=== PATIENT | female | born 1960 | race Caucasian/White ===

== ENCOUNTER → 2017-06-09 | Outpatient (CLI) | payer MEDICARE, OTHER ==
--- NOTE | 2017-06-09 13:28 | XR ---
EXAMINATION TYPE: XR chest 2V DATE OF EXAM: 06/09/2017 HISTORY: [id number] lt rib pain,smoker. REFERENCE: Previous study dated 11/09/2015. FINDINGS: There has been a previous ACDF of the lower cervical spine. The lungs are overinflated. There is scarring in the right upper lobe. Lungs otherwise clear. Pleural spaces are clear. The heart is not enlarged. IMPRESSION: 1. COPD. 2. RIGHT UPPER LOBE PULMONARY SCARRING.
--- NOTE | 2017-06-09 13:48 | XR ---
Left RIBS HISTORY: Left rib pain 4 views of the left RIBS Bone mineralization is maintained. The ninth rib shows a fracture laterally without significant displ acement. No evident pneumothorax or pleural effusion. IMPRESSION: Ninth left rib fracture.
== END | disposition home or self-care (01) ==
LOC: RADXRYALE 11:24
PROVIDERS: ATTEND Physician Assistant Medical
DX: S22.32XA Fracture of one rib, left side, initial encounter for closed fracture (principal); J44.9 Chronic obstructive pulmonary disease, unspecified; J98.4 Other disorders of lung; F17.200 Nicotine dependence, unspecified, uncomplicated
CPT/HCPCS: 71020

== ENCOUNTER → 2017-06-22 | Outpatient (CLI) | payer MEDICARE, OTHER ==
--- NOTE | 2017-06-22 15:39 | XR ---
EXAMINATION TYPE: XR ribs LT w pa chest x-ray DATE OF EXAM: 06/22/2017 CLINICAL HISTORY: Chest and left-sided rib pain. TECHNIQUE: Single frontal view of the chest is obtained. A frontal and oblique images of the left-narinder ed ribs are acquired. COMPARISON: Chest and left-sided rib x-rays June 09, 2017. FINDINGS: There is chronic emphysematous change with right apical scarring and nodularity redemonstra guille. There is no focal air space opacity, pleural effusion, or pneumothorax seen. The cardiac silho uette size is within normal limits. Fusion plate lower cervical spine is partially imaged. Dedicated images of the left-sided ribs show no new acute displaced left-sided rib fracture. There is new callus formation in the anterolateral left ninth rib Overlying soft tissue is unremarkable. IMPRESSION: 1. Chronic emphysematous change with right upper lung scarring and nodularity, no acute pulmonary pro cess. No significant change from prior. 2. Some callus or healing in the now subacute anterolateral left ninth rib. No new acute fracture or dislocation is seen.
== END | disposition home or self-care (01) ==
LOC: RADXRYALE 11:00
PROVIDERS: ATTEND Physician Assistant Medical
DX: J43.9 Emphysema, unspecified (principal); J98.4 Other disorders of lung; R91.1 Solitary pulmonary nodule

== ENCOUNTER → 2017-07-29 | Outpatient (CLI) | payer MEDICARE, OTHER ==
--- NOTE | 2017-07-29 10:27 | BD ---
EXAMINATION TYPE: MG DEXA axial skeleton. DATE OF EXAM: 07/29/2017 COMPARISON: DEXA bone scan June 04, 2011. CLINICAL HISTORY: Z13.820 OSTEOPOROSIS Height: 65 Weight: 129 FRAX RISK QUESTIONS: Alcohol (3 or more units per day): NO Family History (Parent hip fracture): YES, NO HIP FX, BUT MANY SPINAL FXS Glucocorticoids (More than 3mos): NO (Ex: prednisone, prednisolone, methylprednisolone, dexamethasone, and hydrocortisone). History of Fracture in Adulthood: YES Secondary Osteoporosis: NO 1. Type 1 Diabetes: NO 2. Hyperthyroidism: NO 3. Menopause before 45: YES 4. Malnutrition: NO 5. Chronic liver disease: NO Rheumatoid Arthritis: NO Current Tobacco Use: YES, 1/2 PAC DAILY RISK FACTORS HISTORY OF: RECENT RIB FX.....AT 57 YRS OLD History of Wrist Fracture: LT WRIST FX CHILD Surgery to Spine CERVICAL AND LUMBAR FUSION Family History of Osteoporosis: YES, HER MOTHER, CONTINUOUS SPINE FRACTURES WITH MINIMAL MOVEMENT Active: YES Diet low in dairy products/other sources of calcium: NO Postmenopausal woman: YES AT AGE 41 Lost more than 2 inches in height since high school: YES Hyperparathyroidism: NO Adrenal Insufficiency: NO MEDICATIONS: Additional Medications: STATINS FOR CHOLESTEROL, CALCIUM AND VIT D Additional History: BACK ISSUES, OSTEOARTHRITIS EXAM MEASUREMENTS: Bone mineral densitometry was performed using the [employer]. HX OF CERVICAL AND LUMBAR SPINAL FUSIONS....LUMBAR SPINE NOT SCANNED Bone mineral density about the R hip (g/cm2): 0.809 Bone mineral density about the L hip (g/cm2): 0.852 T Score values are as follows: -----R Neck: -1.7 -----L Neck: -1.6 -----R Total: -1.6 -----L Total: -1.2 Bone mineral density has: Decreased -1.0% since study of: 06.04.2011 FRAX%'S: THERE IS A 13.3% CHANCE OF A MAJOR OSTEOPOROTIC FX AND A 2.4% FOR A HIP FX.....PROBABILIT Y OF FX IN 10 YRS TIME IMPRESSION: Osteopenia (T Score between -2.5 and -1 as noted by T score values in both hips. There is slightly increased risk of fracture and the patient may be considered for treatment. Re-Screen 2-5 years NOTE: T-SCORE=SD OF THE YOUNG ADULT MEAN.
--- NOTE | 2017-07-30 11:19 | MM ---
Reason for exam: screening (asymptomatic). Last mammogram was performed 2 years and 8 months ago. History: Patient is postmenopausal. Family history of breast cancer in brother at age 57 and breast cancer in maternal grandmother. Benign excisional biopsy of the left breast. Physical Findings: A clinical breast exam by your physician is recommended on an annual basis and results should be correlated with mammographic findings. MG 3D Screening Mammo W/Cad Bilateral CC and MLO view(s) were taken. Prior study comparison: December 13, 2014, bilateral MG screening mammo w CAD. June 06, 2012, bilateral digital screening mammo w/CAD. The breast tissue is heterogeneously dense. This may lower the sensitivity of mammography. No significant changes when compared with prior studies. ASSESSMENT: Benign, BI-RAD 2 RECOMMENDATION: Routine screening mammogram of both breasts in 1 year.
== END | disposition home or self-care (01) ==
LOC: RADMAMWWP 09:18
PROVIDERS: ATTEND Physician Assistant Medical
DX: Z12.31 Encounter for screening mammogram for malignant neoplasm of breast (principal); M85.88 Other specified disorders of bone density and structure, other site; Z80.3 Family history of malignant neoplasm of breast
CPT/HCPCS: 77080; 77063; G0202

== ENCOUNTER 2018-09-26 10:41 | Emergency (ER) | payer MEDICARE, OTHER ==
[2018-09-26 10:48] VITALS: RESP 18; TEMP 97.5
--- NOTE | 2018-09-26 11:29 | ED ---
General Adult HPI - General Chief complaint: Neck Pain/Injury Stated complaint: neck & shoulder pain Time Seen by Provider: 09/26/18 10:50 Source: patient, RN notes reviewed Mode of arrival: ambulatory Limitations: no limitations - History of Present Illness Initial comments: Patient 58-year-old female seen a few past medical history for chronic neck pain , presented to the emergency room today with a chief complaint of increased neck pain over the last several months. She does admit that back in March she was cutting the grass and she was on a lawnmower. She states she was going around a tree and a tree branch caught her hair pulling it backwards. She does admit that she's had neck pain that has been increasing since this accident. She states she was unable to see her family doctor as it was disputed bill. Patient admits that the pain is worse with movements. She states specifically 2 weeks ago she was changing a light bulb when she went to look up and had her arms above her head and she felt like she went numb from the waist down. She does admit that the pain is worse with movements. She does have some numbness tingling sensation going into the left arm. She does admit that is not experiencing any other paresthesias at this time. Patient denies any recent fever, chills, shortness of breath, chest pain, abdominal pain, nausea or vomiting, headaches or visual changes, or any other complaints. - Related Data Home Medications Medication Instructions Recorded Confirmed Multivitamins, Thera [Theragran] 1 each PO DAILY 02/04/15 09/26/18 [place]-3 Fatty Acids/Fish Oil [Fish 1 each PO DAILY 02/04/15 09/26/18 Oil 1,000 mg Softgel] Calcium Carbonate/Vitamin D3 1 tab PO DAILY 09/26/18 09/26/18 [Calcium 500-Vit D3 200 Tablet] Cholecalciferol (Vitamin D3) 2,000 unit PO DAILY 09/26/18 09/26/18 [Vitamin D3] Grapeseed (Unknown) 1 tab PO DAILY 09/26/18 Peg 400/Hypromellose/Glycerin 1 drop BOTH EYES DAILY 09/26/18 09/26/18 [Visine Dry Eye Relief Drop] Ubidecarenone [Co Q-10] 100 mg PO DAILY 09/26/18 09/26/18 Previous Rx's Medication Instructions Recorded Cyclobenzaprine [Flexeril] 10 mg PO TID #20 tab 09/26/18 Allergies Allergy/AdvReac Type Severity Reaction Status Date / Time ciprofloxacin [From Cipro] Allergy Rash/Hives Verified 09/26/18 11:17 ciprofloxacin HCl Allergy Rash/Hives Verified 09/26/18 11:17 [From Cipro] nitrofurantoin AdvReac MUSCLE Verified 09/26/18 11:17 WEAKNESS risedronate sodium AdvReac JAW PAIN Verified 09/26/18 11:17 [From Actonel] rosuvastatin calcium AdvReac LEG CRAMPS Verified 09/26/18 11:17 [From Crestor] Review of Systems ROS Statement: Those systems with pertinent positive or pertinent negative responses have been documented in the HPI. ROS Other: All systems not noted in ROS Statement are negative. Past Medical History Past Medical History: Hyperlipidemia Additional Past Medical History / Comment(s): MIGRAINE History of Any Multi-Drug Resistant Organisms: None Reported Past Surgical History: Back Surgery, Orthopedic Surgery Additional Past Surgical History / Comment(s): LUMBAR FUSION, BOTH FEET, KNEE ARTHROSCOPY Past Psychological History: ADD/ADHD Smoking Status: Current every day smoker Past Alcohol Use History: None Reported Past Drug Use History: None Reported General Exam - General Exam Comments Initial Comments: General: The patient is awake and alert, in no distress, and does not appear acutely ill. Eye: Pupils are equal, round and reactive to light. Extra-ocular movements are intact. No nystagmus. There is normal conjunctiva bilaterally. No signs of icterus. Ears, nose, mouth and throat: There are moist mucous membranes and no oral lesions. Neck: The neck is supple, there is no tenderness or JVD. Cardiovascular: There is a regular rate and rhythm. No murmur, rub or gallop is appreciated. Respiratory: Lungs are clear to auscultation, respirations are non-labored, breath sounds are equal. No wheezes, stridor, rales, or rhonchi. Musculoskeletal: Normal ROM. Normal appearance of cervical, thoracic or lumbar spinal no step-off or deformity. She does have tenderness at C5 to C7. Sensation intact. Strength 5/5. Pulses equal bilaterally 2+. Neurological: A&O x 3. CN II-XII intact, There are no obvious motor or sensory deficits. Coordination appears grossly intact. Speech is normal. Skin: Skin is warm and dry and no rashes or lesions are noted. Psychiatric: Cooperative, appropriate mood & affect, normal judgment. Limitations: no limitations Course Vital Signs 09/26/18 09/26/18 10:46 12:02 Temperature 97.5 F L Pulse Rate 87 76 Respiratory 18 18 Rate Blood Pressure 154/109 158/100 O2 Sat by Pulse 99 98 Oximetry Medical Decision Making - Medical Decision Making CT of the cervical spine reviewed and shows 1. Grade 1 spondylolisthesis of C4 on C5. 2. Foraminal stenosis of C4-7. 3. No acute osseous abnormality. As read by radiologist.Case discussed in detail with attending physician Dr. Mcintyre. Patient will be discharged home advised to follow-up urologist she is advised to return if any symptoms increase or worsen or for any concerns. Disposition Clinical Impression: Cervical radiculopathy Disposition: HOME SELF-CARE Condition: Good Instructions: Cervical Radiculopathy (ED) Additional Instructions: Please use medication as discussed. Please follow-up with neurologist/family doctor in the next 2 days of symptoms have not improved. Please return to emergency room if the symptoms increase or worsen or for any other concerns. Prescriptions: Cyclobenzaprine [Flexeril] 10 mg PO TID #20 tab Is patient prescribed a controlled substance at d/c from ED?: No Referrals: None,Stated [Primary Care Provider] - 1-2 days Oracio Badillo MD [STAFF PHYSICIAN] - 1-2 days Time of Disposition: 12:19
--- NOTE | 2018-09-26 11:50 | CT ---
EXAMINATION TYPE: CT cervical spine wo con DATE OF EXAM: 09/26/2018 COMPARISON: CT chest 02/11/2011 HISTORY: Neck pain CT DLP: 208.5 mGycm CONTRAST: None CT of the cervical spine is performed in the axial plane at 2 mm thick sections. Reconstructed image s in the coronal, and sagittal plane are reviewed on the computer. No acute fractures are evident. There is a grade 1 spondylolisthesis of C4 anteriorly on C5. Anterior cervical fusion is present C5-C 7. There is loss of disc height through the C5-C7 fusion. There is narrowing of the C7-T1 disc space. Mi nimal narrowing of the C4-5 disc space may be present. Vertebral body heights are preserved. No spinal canal stenosis is evident Uncovertebral joint hypertrophy is contributing to severe left foraminal stenosis C4-5. Moderate to s evere right foraminal stenosis is present C5-6 and moderate foraminal narrowing is present bilaterall y C6-7. There is a 2.4 x 1.0 cm thickening with some stranding adjacent at the right apex. This is essentiall y stable from the 2010 CT examination. IMPRESSIONS: 1. Grade 1 spondylolisthesis of C4 on C5. 2. Foraminal stenosis discussed above. 3. No acute osseous abnormality.
[2018-09-26 12:03] VITALS: BP 158/100; PULSE 76
== END 2018-09-26 12:31 | disposition home or self-care (01) ==
LOC: EC 10:41
DX: M54.12 Radiculopathy, cervical region (principal); M43.12 Spondylolisthesis, cervical region; M99.71 Connective tissue and disc stenosis of intervertebral foramina of cervical region; F17.200 Nicotine dependence, unspecified, uncomplicated; Z79.899 Other long term (current) drug therapy; Z88.1 Allergy status to other antibiotic agents; Z88.8 Allergy status to other drugs, medicaments and biological substances
CPT/HCPCS: 72125; 99283

== ENCOUNTER 2018-11-07 15:04 | Inpatient (IN) | payer MEDICARE, OTHER ==
[2018-11-07] MEDS ORDERED: methylPREDNISolone SOD SUCCI 125 MG/2 ML VIAL IV STA (15:16)
[2018-11-07] MEDS ORDERED: IPRATROPIUM-ALBUTEROL 3 ML NEB INHALATION STA ×2 (15:16→16:35)
[2018-11-07] MEDS ORDERED: SODIUM CHLORIDE 0.9% 1,000 ML IV STA (15:16)
--- NOTE | 2018-11-07 15:19 | ED ---
General Adult HPI - General Chief complaint: Upper Respiratory Infection Stated complaint: cough/fever/congestion Time Seen by Provider: 11/07/18 15:11 Source: patient, RN notes reviewed Mode of arrival: wheelchair Limitations: no limitations - History of Present Illness Initial comments: Patient's a 58-year-old female presenting to the emergency room with chief complaint of cough congestion over the last 4 days. Patient does admit that she was running a fever 102 at home the other day. Patient states that she's had cough with sputum production it's been green in color. Patient does admit to a history of COPD did try one albuterol treatment that she had leftover states she had little relief the symptoms. Patient does admit to feeling more short of breath with exertion. Patient denies any recent fever, chills, chest pain, back pain, abdominal pain, nausea or vomiting, numbness or tingling, headaches or visual changes, or any other complaints. - Related Data Home Medications Medication Instructions Recorded Confirmed Multivitamins, Thera [Theragran] 1 each PO DAILY 02/04/15 11/07/18 [place]-3 Fatty Acids/Fish Oil [Fish 1 each PO DAILY 02/04/15 11/07/18 Oil 1,000 mg Softgel] Cholecalciferol (Vitamin D3) 2,000 unit PO DAILY 09/26/18 11/07/18 [Vitamin D3] Allergies Allergy/AdvReac Type Severity Reaction Status Date / Time ciprofloxacin [From Cipro] Allergy Rash/Hives Verified 11/07/18 18:50 ciprofloxacin HCl Allergy Rash/Hives Verified 11/07/18 18:50 [From Cipro] nitrofurantoin AdvReac MUSCLE Verified 11/07/18 18:50 WEAKNESS risedronate sodium AdvReac JAW PAIN Verified 11/07/18 18:50 [From Actonel] rosuvastatin calcium AdvReac LEG CRAMPS Verified 11/07/18 18:50 [From Crestor] Review of Systems ROS Statement: Those systems with pertinent positive or pertinent negative responses have been documented in the HPI. ROS Other: All systems not noted in ROS Statement are negative. Past Medical History Past Medical History: Hyperlipidemia Additional Past Medical History / Comment(s): MIGRAINE History of Any Multi-Drug Resistant Organisms: None Reported Past Surgical History: Back Surgery, Orthopedic Surgery Additional Past Surgical History / Comment(s): LUMBAR FUSION, BOTH FEET, KNEE ARTHROSCOPY Past Psychological History: ADD/ADHD Smoking Status: Current every day smoker Past Alcohol Use History: None Reported Past Drug Use History: None Reported General Exam - General Exam Comments Initial Comments: General: The patient is awake and alert, in no distress, and does not appear acutely ill. Eye: There is normal conjunctiva bilaterally. No signs of icterus. Ears, nose, mouth and throat: There are moist mucous membranes and no oral lesions. Neck: The neck is supple. Cardiovascular: There is a regular rate and rhythm. No murmur, rub or gallop is appreciated. Respiratory: Lateral expiratory wheeze with scattered rhonchi. are non-labored , breath sounds are equal. Nostridor, rales. Musculoskeletal: Normal ROM, no tenderness. Strength 5/5. Sensation intact. Pulses equal bilaterally 2+. Neurological: A&O x 3. CN II-XII intact, There are no obvious motor or sensory deficits. Coordination appears grossly intact. Speech is normal. Skin: Skin is warm and dry and no rashes or lesions are noted. Psychiatric: Cooperative, appropriate mood & affect, normal judgment. Limitations: no limitations Course Vital Signs 11/07/18 11/07/18 11/07/18 15:07 15:32 15:36 Temperature 97.8 F Pulse Rate 110 H 98 Respiratory 24 20 18 Rate Blood Pressure 135/88 O2 Sat by Pulse 92 L Oximetry 11/07/18 11/07/18 11/07/18 15:46 16:46 16:54 Temperature Pulse Rate 96 109 H 107 H Respiratory 20 18 Rate Blood Pressure O2 Sat by Pulse Oximetry 11/07/18 11/07/18 11/07/18 17:37 18:19 18:28 Temperature Pulse Rate 101 H Respiratory 18 18 Rate Blood Pressure 136/92 128/93 O2 Sat by Pulse 93 L 83 L 94 L Oximetry 11/07/18 19:28 Temperature 97.4 F L Pulse Rate 88 Respiratory 18 Rate Blood Pressure 140/86 O2 Sat by Pulse 96 Oximetry EKG Findings - EKG Comments: EKG Findings:: EKG performed at 1523: Shows normal sinus rhythm at 93 bpm. SC interval 156. QRS 88. QT/QTC 362/450. No acute ST changes. Medical Decision Making - Medical Decision Making Patient reexamined at this time shows no signs of distress resting comfort. Does admit some improvement after breathing treatments. Patient's pulse ox still drops down to the 80s with ambulation. Patient started on antibiotics of Rocephin and azithromycin here in the emergency room. Patient will be admitted continued on steroids, breathing treatments. We'll consult to telephone instrument supervisor Dr. Greene 1924: Attending physician discuss case with admitting physician Dr. Talbert. - Lab Data Result diagrams: 11/07/18 15:40 11/07/18 15:40 Lab Results 11/07/18 11/07/18 11/07/18 Range/Units 15:40 15:40 15:40 WBC 8.1 (3.8-10.6) k/uL RBC 4.87 (3.80-5.40) m/uL Hgb 15.1 (11.4-16.0) gm/dL Hct 47.5 H (34.0-46.0) % MCV 97.6 (80.0-100.0) fL MCH 31.1 (25.0-35.0) pg MCHC 31.8 (31.0-37.0) g/dL RDW 13.0 (11.5-15.5) % Plt Count 132 L (150-450) k/uL Neutrophils % 79 % Lymphocytes % 12 % Monocytes % 5 % Eosinophils % 2 % Basophils % 1 % Neutrophils # 6.4 (1.3-7.7) k/uL Lymphocytes # 1.0 (1.0-4.8) k/uL Monocytes # 0.4 (0-1.0) k/uL Eosinophils # 0.1 (0-0.7) k/uL Basophils # 0.0 (0-0.2) k/uL Sodium 138 (137-145) mmol/L Potassium 4.4 (3.5-5.1) mmol/L Chloride 107 (98-107) mmol/L Carbon Dioxide 21 L (22-30) mmol/L Anion Gap 10 mmol/L BUN 15 (7-17) mg/dL Creatinine 0.56 (0.52-1.04) mg/dL Est GFR (CKD-EPI)AfAm >90 (>60 ml/min/1.73 sqM) Est GFR (CKD-EPI)NonAf >90 (>60 ml/min/1.73 sqM) Glucose 89 (74-99) mg/dL Plasma Lactic Acid Theo (0.7-2.0) mmol/L Calcium 9.4 (8.4-10.2) mg/dL Total Bilirubin 0.5 (0.2-1.3) mg/dL AST 34 (14-36) U/L ALT 22 (9-52) U/L Alkaline Phosphatase 76 (38-126) U/L Total Creatine Kinase 211 H (30-135) U/L CK-MB (CK-2) 1.8 (0.0-2.4) ng/mL CK-MB (CK-2) Rel Index 0.9 Troponin I <0.012 (0.000-0.034) ng/mL Total Protein 7.4 (6.3-8.2) g/dL Albumin 3.9 (3.5-5.0) g/dL 11/07/18 Range/Units 15:40 WBC (3.8-10.6) k/uL RBC (3.80-5.40) m/uL Hgb (11.4-16.0) gm/dL Hct (34.0-46.0) % MCV (80.0-100.0) fL MCH (25.0-35.0) pg MCHC (31.0-37.0) g/dL RDW (11.5-15.5) % Plt Count (150-450) k/uL Neutrophils % % Lymphocytes % % Monocytes % % Eosinophils % % Basophils % % Neutrophils # (1.3-7.7) k/uL Lymphocytes # (1.0-4.8) k/uL Monocytes # (0-1.0) k/uL Eosinophils # (0-0.7) k/uL Basophils # (0-0.2) k/uL Sodium (137-145) mmol/L Potassium (3.5-5.1) mmol/L Chloride (98-107) mmol/L Carbon Dioxide (22-30) mmol/L Anion Gap mmol/L BUN (7-17) mg/dL Creatinine (0.52-1.04) mg/dL Est GFR (CKD-EPI)AfAm (>60 ml/min/1.73 sqM) Est GFR (CKD-EPI)NonAf (>60 ml/min/1.73 sqM) Glucose (74-99) mg/dL Plasma Lactic Acid Theo 0.9 (0.7-2.0) mmol/L Calcium (8.4-10.2) mg/dL Total Bilirubin (0.2-1.3) mg/dL AST (14-36) U/L ALT (9-52) U/L Alkaline Phosphatase (38-126) U/L Total Creatine Kinase (30-135) U/L CK-MB (CK-2) (0.0-2.4) ng/mL CK-MB (CK-2) Rel Index Troponin I (0.000-0.034) ng/mL Total Protein (6.3-8.2) g/dL Albumin (3.5-5.0) g/dL Disposition Clinical Impression: COPD exacerbation, Hypoxia Disposition: ADMITTED IP TO THIS HOSP Condition: Good Is patient prescribed a controlled substance at d/c from ED?: No Referrals: None,Stated [Primary Care Provider] - 1-2 days Time of Disposition: 18:19
[2018-11-07 15:56] LABS: Basophils % (A) 1 %; Eosinophils # (A) 0.1 k/uL (0-0.7); Eosinophils % (A) 2 %; HCT 47.5 % (34.0-46.0); HGB 15.1 gm/dL (11.4-16.0); Lymphocytes % (A) 12 %; MCH 31.1 pg (25.0-35.0); MCHC 31.8 g/dL (31.0-37.0); MCV 97.6 fL (80.0-100.0); Mean Platelet Volume 8.4; Monocytes # (A) 0.4 k/uL (0-1.0); Monocytes % (A) 5 %; Neutrophils # (A) 6.4 k/uL (1.3-7.7); Neutrophils % (A) 79 %; Platelet Count 132 k/uL (150-450); RBC 4.87 m/uL (3.80-5.40); WBC 8.1 k/uL (3.8-10.6)
--- NOTE | 2018-11-07 16:10 | XR ---
EXAMINATION TYPE: XR chest 2V DATE OF EXAM: 11/07/2018 COMPARISON: 11/09/2015 HISTORY: 58-year-old female with cough TECHNIQUE: PA and lateral views FINDINGS: The heart is normal size. Aorta and pulmonary vasculature are within normal limits. As well as emphys gianna with changes greatest at the right apex with some underlying nodularity that appears relatively s imilar to prior exam. No consolidation or pleural effusion seen. ACDF hardware. IMPRESSION: 1. COPD with advanced emphysema. 2. Focal irregular emphysematous change redemonstrated at the right apex with some associated nodular ity which appears largely stable from 2015. Recommend nonemergent CT chest given the patient's increa sed risk for development of lung cancer. The patient may qualify for lung cancer screening CT.
[2018-11-07 16:14] LABS: Creatine Kinase 211 U/L (30-135)
[2018-11-07 16:16] LABS: ALT 22 U/L (9-52); AST 34 U/L (14-36); Albumin 3.9 g/dL (3.5-5.0); Alkaline Phosphatase 76 U/L (38-126); Blood Urea Nitrogen 15 mg/dL (7-17); Calcium 9.4 mg/dL (8.4-10.2); Carbon Dioxide 21 mmol/L (22-30); Glucose 89 mg/dL (74-99); Total Bilirubin 0.5 mg/dL (0.2-1.3); Total Protein 7.4 g/dL (6.3-8.2)
[2018-11-07 16:23] LABS: Creatine Kinase MB 1.8 ng/mL (0.0-2.4)
[2018-11-07 16:24] LABS: Anion Gap 10 mmol/L; Chloride 107 mmol/L (98-107); Potassium 4.4 mmol/L (3.5-5.1); Sodium 138 mmol/L (137-145)
[2018-11-07 16:42] LABS: Troponin I <0.012 ng/mL (0.000-0.034)
[2018-11-07] MEDS ORDERED: MORPHINE SULFATE 4 MG/ML SYRINGE IV STA (17:48)
[2018-11-07] MEDS ORDERED: AZITHROMYCIN 500 MG in SODIUM CHLORIDE 0.9% 250 ML IVPB STA (17:48)
[2018-11-07] MEDS ORDERED: SODIUM CHLORIDE 0.9% 1,000 ML IV ONE (18:20)
[2018-11-07 20:41] VITALS: BMI 20.3
[2018-11-08] MEDS: methylPREDNISolone SOD SUCCI 125 MG/2 ML VIAL IV SCH ×3 (00:02→14:07)
[2018-11-08] MEDS: IPRATROPIUM-ALBUTEROL 3 ML NEB INHALATION PRN ×2 (01:09→07:11)
[2018-11-08] MEDS: AZITHROMYCIN 500 MG in SODIUM CHLORIDE 0.9% 250 ML IVPB SCH (08:07)
--- NOTE | 2018-11-08 11:34 | P.CNPUL ---
History of Present Illness Consult date: 11/08/18 Requesting physician: Alfredo Forde Reason for consult: dyspnea Chief complaint: Shortness of breath History of present illness: This is a very pleasant 58-year-old female patient who currently has no primary care physician. She used to follow with Dr. Bowden in the office. She has a history of hyperlipidemia, ADHD. She also has a history of chronic and ongoing tobacco dependence. She has a history of previous necrotizing pneumonia and had been seen by Dr. Love in our office for the same. She was last there 3 years ago. She is not on any inhalers or oxygen in the outpatient setting. She presented here to the emergency room yesterday with worsening shortness of breath, cough and congestion. She states she did have a fever on home and was coughing up green productive sputum. She did have a leftover albuterol treatment that she tried without much improvement. Chest x-ray shows evidence of advanced emphysema/COPD. There is a focal irregular emphysematous changes redemonstrated at the right apex which is stable from 2015. She is maintaining good O2 saturations in the 90s on room air. She's been afebrile. Hemodynamically stable. White count 8.1. Hemoglobin 15.1. Creatinine 0.56. She has been initiated on DuoNeb inhalations, azithromycin, IV Solu-Medrol. Review of Systems 14 point review of system was conducted. All negative other than as mentioned in the HPI. Past Medical History Past Medical History: COPD, Hyperlipidemia, Pneumonia Additional Past Medical History / Comment(s): MIGRAINE History of Any Multi-Drug Resistant Organisms: None Reported Past Surgical History: Back Surgery, Orthopedic Surgery Additional Past Surgical History / Comment(s): LUMBAR FUSIONx2 ,cervical funsion x1, BOTH FEET bunion sx, KNEE ARTHROSCOPY Past Anesthesia/Blood Transfusion Reactions: No Reported Reaction Past Psychological History: ADD/ADHD Smoking Status: Current every day smoker Past Alcohol Use History: None Reported Past Drug Use History: None Reported - Past Family History Daughter(s) Family Medical History: No Reported History Son(s) Family Medical History: No Reported History Medications and Allergies Home Medications Medication Instructions Recorded Confirmed Type Multivitamins, Thera [Theragran] 1 each PO DAILY 02/04/15 11/07/18 History [place]-3 Fatty Acids/Fish Oil [Fish 1 each PO DAILY 02/04/15 11/07/18 History Oil 1,000 mg Softgel] Cholecalciferol (Vitamin D3) 2,000 unit PO DAILY 09/26/18 11/07/18 History [Vitamin D3] Allergies Allergy/AdvReac Type Severity Reaction Status Date / Time ciprofloxacin [From Cipro] Allergy Rash/Hives Verified 11/07/18 18:50 ciprofloxacin HCl Allergy Rash/Hives Verified 11/07/18 18:50 [From Cipro] nitrofurantoin AdvReac MUSCLE Verified 11/07/18 18:50 WEAKNESS risedronate sodium AdvReac JAW PAIN Verified 11/07/18 18:50 [From Actonel] rosuvastatin calcium AdvReac LEG CRAMPS Verified 11/07/18 18:50 [From Crestor] Physical Exam Vitals: Vital Signs Temp Pulse Pulse Resp BP BP Pulse Ox 11/08/18 07:20 98 11/08/18 07:11 102 H 11/08/18 07:07 97.7 F 98 20 130/88 91 L 11/08/18 01:23 100 11/08/18 01:16 100 11/07/18 20:35 93 L 11/07/18 20:30 97.6 F 100 22 140/88 88 L 11/07/18 19:28 97.4 F L 88 18 140/86 96 11/07/18 18:28 101 H 18 128/93 94 L 11/07/18 18:19 83 L 11/07/18 17:37 18 136/92 93 L 11/07/18 16:54 107 H 18 11/07/18 16:46 109 H 20 11/07/18 15:46 96 11/07/18 15:36 98 18 11/07/18 15:32 20 11/07/18 15:07 97.8 F 110 H 24 135/88 92 L Intake and Output 11/07/18 11/08/18 11/08/18 22:59 06:59 14:59 Intake Total 250 800 Balance 250 800 Intake: Intake, IV Titration 250 800 Amount Azithromycin 500 mg In 250 Sodium Chloride 0.9% 250 ml @ 250 mls/hr IVPB DAILY [facility] Rx#:[id number] Sodium Chloride 0.9% 1, 800 000 ml @ 100 mls/hr IV . Q10H ONE Rx#:[id number] Other: Voiding Method Toilet Toilet Weight 55.5 kg GENERAL EXAM: Alert, active, comfortable in no apparent distress. HEAD: Normocephalic. EYES: Normal reaction of pupils, equal size. NOSE: Clear with pink turbinates. THROAT: No erythema or exudates. NECK: No masses, no JVD. CHEST: No chest wall deformity. LUNGS: Equal air entry with lateral end expiratory wheeze, diminished. CVS: S1 and S2 normal with no audible murmur, regular rhythm. ABDOMEN: No hepatosplenomegaly, normal bowel sounds, no guarding or rigidity. SPINE: No scoliosis or deformity SKIN: No rashes CENTRAL NERVOUS SYSTEM: No focal deficits, tone is normal in all 4 extremities. EXTREMITIES: There is no peripheral edema. No clubbing, no cyanosis. Peripheral pulses are intact. Results - Laboratory Findings CBC and BMP: 11/07/18 15:40 11/07/18 15:40 Abnormal lab findings: Abnormal Labs 11/07/18 11/07/18 11/07/18 15:40 15:40 15:40 Hct 47.5 H Plt Count 132 L Carbon Dioxide 21 L Total Creatine Kinase 211 H - Diagnostic Findings Chest x-ray: image reviewed Assessment and Plan Assessment: Impression: #1 Acute exacerbation of chronic obstructive pulmonary disease complicated by recurrent tracheal bronchitis. #2 Chronic and ongoing tobacco dependence. #3 History of necrotizing pneumonia. #4 Hyperlipidemia. #5 History of migraine. Plan: The patient was seen and evaluated by Dr. Chavarria. Chest x-ray and labs were reviewed. She'll be treated for a COPD exacerbation. Continue IV Solu-Medrol, DuoNeb inhalations every 4 hours while awake, add Pulmicort and Perforomist inhalations twice a day, continue empiric antibiotics. She is educated regarding the importance of complete smoking cessation. NicoDerm patch will be ordered. She is also educated regarding the need for primary care physician. She is also educated regarding the need follow-up with Dr. Love in our office and pulmonary function testing will be performed to evaluate the severity of her COPD and make recommendations for her maintenance medications. On the we will continue to follow make further recommendations based on her clinical status. I, the cosigning physician, performed a history & physical examination of the patient. Lungs sounds with bilateral end expiratory wheeze, diminished. Maintaining good O2 saturations in the 90s on 2 L/m per nasal cannula. I discussed the assessment and plan of care with my nurse practitioner, Bessie Sahni. I attest to the above consultation as dictated by her. Time with Patient: Greater than 30
[2018-11-08] MEDS: IPRATROPIUM-ALBUTEROL 3 ML NEB INHALATION SCH ×3 (11:38→19:23)
--- NOTE | 2018-11-08 14:20 | P.HPIM ---
History of Present Illness 58-year-old female with continued nicotine dependence came in with compensative shortness of breath had history of necrotizing pneumonia in the past. Patient is feeling much better now patient is clear on auscultation today. Patient does not have any pneumonia on chest x-ray patient doesn't use any oxygen at home. Patient denied any fever chills nausea vomiting. Review of Systems REVIEW OF SYSTEMS: CONSTITUTIONAL: No fever, no malaise, no fatigue. HEENT: No recent visual problems or hearing problems. Denied any sore throat. CARDIOVASCULAR: No chest pain, orthopnea, PND, no palpitations, no syncope. PULMONARY: no hemoptysis. GASTROINTESTINAL: No diarrhea, no nausea, no vomiting, no abdominal pain. NEUROLOGICAL: No headaches, no weakness, no numbness. HEMATOLOGICAL: Denies any bleeding or petechiae. GENITOURINARY: Denies any burning micturition, frequency, or urgency. MUSCULOSKELETAL/RHEUMATOLOGICAL: Denies any joint pain, swelling, or any muscle pain. ENDOCRINE: Denies any polyuria or polydipsia. The rest of the 14-point review of systems is negative. Past Medical History Past Medical History: COPD, Hyperlipidemia, Pneumonia Additional Past Medical History / Comment(s): MIGRAINE History of Any Multi-Drug Resistant Organisms: None Reported Past Surgical History: Back Surgery, Orthopedic Surgery Additional Past Surgical History / Comment(s): LUMBAR FUSIONx2 ,cervical funsion x1, BOTH FEET bunion sx, KNEE ARTHROSCOPY Past Anesthesia/Blood Transfusion Reactions: No Reported Reaction Past Psychological History: ADD/ADHD Smoking Status: Current every day smoker Past Alcohol Use History: None Reported Past Drug Use History: None Reported - Past Family History Daughter(s) Family Medical History: No Reported History Son(s) Family Medical History: No Reported History Medications and Allergies Home Medications Medication Instructions Recorded Confirmed Type Multivitamins, Thera [Theragran] 1 each PO DAILY 02/04/15 11/07/18 History [place]-3 Fatty Acids/Fish Oil [Fish 1 each PO DAILY 02/04/15 11/07/18 History Oil 1,000 mg Softgel] Cholecalciferol (Vitamin D3) 2,000 unit PO DAILY 09/26/18 11/07/18 History [Vitamin D3] Allergies Allergy/AdvReac Type Severity Reaction Status Date / Time ciprofloxacin [From Cipro] Allergy Rash/Hives Verified 11/07/18 18:50 ciprofloxacin HCl Allergy Rash/Hives Verified 11/07/18 18:50 [From Cipro] nitrofurantoin AdvReac MUSCLE Verified 11/07/18 18:50 WEAKNESS risedronate sodium AdvReac JAW PAIN Verified 11/07/18 18:50 [From Actonel] rosuvastatin calcium AdvReac LEG CRAMPS Verified 11/07/18 18:50 [From Crestor] Physical Exam Vitals: Vital Signs Temp Pulse Pulse Resp BP BP Pulse Ox 11/08/18 11:52 108 H 11/08/18 11:38 100 11/08/18 07:20 98 11/08/18 07:11 102 H 11/08/18 07:07 97.7 F 98 20 130/88 91 L 11/08/18 01:23 100 11/08/18 01:16 100 11/07/18 20:35 93 L 11/07/18 20:30 97.6 F 100 22 140/88 88 L 11/07/18 19:28 97.4 F L 88 18 140/86 96 11/07/18 18:28 101 H 18 128/93 94 L 11/07/18 18:19 83 L 11/07/18 17:37 18 136/92 93 L 11/07/18 16:54 107 H 18 11/07/18 16:46 109 H 20 11/07/18 15:46 96 11/07/18 15:36 98 18 11/07/18 15:32 20 11/07/18 15:07 97.8 F 110 H 24 135/88 92 L Intake and Output 11/07/18 11/08/18 11/08/18 22:59 06:59 14:59 Intake Total 250 800 250 Balance 250 800 250 Intake: Intake, IV Titration 250 800 250 Amount Azithromycin 500 mg In 250 Sodium Chloride 0.9% 250 ml @ 250 mls/hr IVPB DAILY [facility] Rx#:[id number] Azithromycin 500 mg In 250 Sodium Chloride 0.9% 250 ml @ 250 mls/hr IVPB [facility] Rx#:[id number] Sodium Chloride 0.9% 1, 800 000 ml @ 100 mls/hr IV . Q10H ONE Rx#:[id number] Other: Voiding Method Toilet Toilet Weight 55.5 kg PHYSICAL EXAMINATION: GENERAL: The patient is alert and oriented x3, not in any acute distress. Well developed, well nourished. HEENT: Pupils are round and equally reacting to light. EOMI. No scleral icterus. No conjunctival pallor. Normocephalic, atraumatic. No pharyngeal erythema. No thyromegaly. CARDIOVASCULAR: S1 and S2 present. No murmurs, rubs, or gallops. PULMONARY: Chest is clear to auscultation, no wheezing or crackles. ABDOMEN: Soft, nontender, nondistended, normoactive bowel sounds. No palpable organomegaly. MUSCULOSKELETAL: No joint swelling or deformity. EXTREMITIES: No cyanosis, clubbing, or pedal edema. NEUROLOGICAL: Gross neurological examination did not reveal any focal deficits. SKIN: No rashes. Results CBC & Chem 7: 11/07/18 15:40 11/07/18 15:40 Labs: Abnormal Lab Results - Last 24 Hours (Table) 11/07/18 11/07/18 11/07/18 Range/Units 15:40 15:40 15:40 Hct 47.5 H (34.0-46.0) % Plt Count 132 L (150-450) k/uL Carbon Dioxide 21 L (22-30) mmol/L Total Creatine Kinase 211 H (30-135) U/L Thrombosis Risk Factor Assmnt - Choose All That Apply Any of the Below Risk Factors Present?: Yes Each Factor Represents 1 point: Abnormal pulmonary function (COPD), Age 41-60 years, Serious lung disease incl. pneumonia (< 1month) Other Risk Factors: No Other congenital or acquired thrombophilia - If yes, enter type in comment: No Thrombosis Risk Factor Assessment Total Risk Factor Score: 3 Thrombosis Risk Factor Assessment Level: Moderate Risk Assessment and Plan Plan: -COPD exacerbation with tracheobronchitis: Patient will continued on antibiotic systemic steroids inhalational treatments lamellated the patient patient is not wheezing on exam and if she is a not short of breath and if her vitals are stable probably patient can be discharged. -Continued tobacco use: Counseling was provided Hyperlipidemia -Migraine history
[2018-11-08] MEDS: FORMOTEROL FUMARATE 20 MCG/2 ML NEBU INHALATION SCH (19:22)
[2018-11-08] MEDS: BUDESONIDE 1 MG/2 ML NEBU INHALATION SCH (19:24)
[2018-11-08] MEDS: methylPREDNISolone SOD SUCCI 40 MG/ML 1 ML VIAL IV SCH (20:30)
[2018-11-09] MEDS: HYDROcodone/APAP 5-325MG 1 EACH TAB PO PRN ×2 (01:19→11:16)
[2018-11-09 05:40] VITALS: RESP 18; TEMP 97.4
[2018-11-09] MEDS: FORMOTEROL FUMARATE 20 MCG/2 ML NEBU INHALATION SCH (08:09)
[2018-11-09] MEDS: IPRATROPIUM-ALBUTEROL 3 ML NEB INHALATION SCH ×3 (08:09→15:09)
[2018-11-09] MEDS: BUDESONIDE 1 MG/2 ML NEBU INHALATION SCH (08:09)
[2018-11-09] MEDS: AZITHROMYCIN 500 MG in SODIUM CHLORIDE 0.9% 250 ML IVPB SCH (08:22)
[2018-11-09] MEDS: methylPREDNISolone SOD SUCCI 40 MG/ML 1 ML VIAL IV SCH (08:22)
[2018-11-09] MEDS ORDERED: AZITHROMYCIN 500 MG TAB PO SCH (10:30)
--- NOTE | 2018-11-09 12:48 | PN ---
PROGRESS NOTE DATE OF SERVICE: 11/09/2018. This is a 58-year-old female smoker who we saw yesterday in consultation with a COPD exacerbation complicated by tracheobronchitis. She has a history of ongoing and chronic tobacco dependence, a previous history of necrotizing pneumonia, hyperlipidemia, and migraine cephalgia. She had seen Dr. Love in the past some 3 years ago, but has not seen him recently. She used to also see a family doctor in [place], but apparently was kicked out of the practice for not paying her bills. Anyway, from the COPD standpoint, she is doing much better. Her breathing is much better. Today we discontinued her Solu-Medrol in favor of a Medrol Dosepak and switched her IV Zithromax to oral Zithromax. I think she should also be discharged home on a nebulizer with albuterol and Atrovent and Symbicort 160/4.5, two puffs twice a day. Unfortunately, when we went into the room, she had a number of complaints. She was yelling at us. She was upset with the medications that she was receiving. She was complaining of swollen feet. She states her migraine was acting up and she said that the doctors were not answering any of her questions. Most or all of her questions had to do with things other than her lungs. I mentioned to her that she should ask her hospital doctor about these things. Anyway, the patient from our perspective is doing much better and could be discharged from the hospital. Her current vital signs are reviewed. Temperature 97.4, heart rate 99, respiratory rate 18, blood pressure 122/80, mean 94, saturations on a couple liters were 92%. Appears in no acute distress. No respiratory distress. No audible wheezing. No use of accessory muscles. HEENT examination is grossly unremarkable. Nasal O2 in place. NECK: Supple. Full range of motion. No adenopathy or thyromegaly. Cardiovascular examination reveals regular rhythm rate. Heart rate about 90 beats per minute, is regular. S1, S2 normal. No murmur. Lungs reveal mostly clear breath sounds. A few scattered mild rhonchi. Breath sounds are much improved compared to yesterday's exam. No crackles. No expiratory wheezes. Breath sounds are equal bilaterally. ABDOMEN: Soft. Bowel sounds are heard. No masses or tenderness. Extremities are intact. No cyanosis, clubbing or edema. Skin without rash. Neurologic examination is brief, but nonfocal. No new labs today. X-rays reviewed. Medications are reviewed. ASSESSMENT: 1. Chronic obstructive pulmonary disease exacerbation complicated by tracheobronchitis. 2. Ongoing and chronic tobacco use. 3. Previous history of necrotizing pneumonia. 4. Hyperlipidemia. 5. History of migraine cephalgia. PLAN: The patient could be discharged home. We will leave that up to the primary. It appeared that she has number of other issues that the primary will have to deal with. Anyway, the patient Solu-Medrol dose discontinued in favor of a Medrol Dosepak. Her IV Zithromax was changed to oral Zithromax. She should be discharged home with a nebulizer to be used with albuterol and Atrovent to be given at least 3 times a day and maybe 4 times a day and p.r.n. In addition, we recommend Symbicort 160/4.5, two puffs twice a day. Additional recommendations and suggestions are forthcoming. She could certainly follow up with my partner to update her PFTs and other data. MMODL / IJN: [id number] /
[2018-11-09 15:12] VITALS: PULSE 100
[2018-11-09 15:28] VITALS: BP 162/109
--- NOTE | 2018-11-09 15:53 | P.DS ---
Providers Date of admission: 11/07/18 18:19 Attending physician: Alfredo Forde Consults: 11/07/18 18:20 Consult Physician Stat Consulting Provider: John Love Reason/Comments: COPD Do you want consulting provider notified?: Yes Primary care physician: Stated None Hospital Course: Patient is admitted for COPD exacerbation continued nicotine dependence which counseling was provided and patient will be discharged today in stable medical condition to home. Patient is not requiring home oxygen patient is saturating at 90% or upon ablation without oxygen. PHYSICAL EXAMINATION: GENERAL: The patient is alert and oriented x3, not in any acute distress. Well developed, well nourished. HEENT: Pupils are round and equally reacting to light. EOMI. No scleral icterus. No conjunctival pallor. Normocephalic, atraumatic. No pharyngeal erythema. No thyromegaly. CARDIOVASCULAR: S1 and S2 present. No murmurs, rubs, or gallops. PULMONARY: Chest is clear to auscultation, no wheezing or crackles. ABDOMEN: Soft, nontender, nondistended, normoactive bowel sounds. No palpable organomegaly. MUSCULOSKELETAL: No joint swelling or deformity. EXTREMITIES: No cyanosis, clubbing, or pedal edema. NEUROLOGICAL: Gross neurological examination did not reveal any focal deficits. SKIN: No rashes. Assessment and Plan Plan: -COPD exacerbation with tracheobronchitis: -Continued tobacco use: Counseling was provided Hyperlipidemia -Migraine history Patient Condition at Discharge: Good Plan - Discharge Summary Discharge Rx Participant: No New Discharge Prescriptions: New Albuterol Inhaler [Ventolin Hfa Inhaler] 1 - 2 puff INHALATION Q6HR PRN #1 inhaler PRN Reason: Shortness Of Breath Or Wheezing Budesonide-Formot 160-4.5 Mcg [Symbicort 160-4.5 Mcg Inhaler] 2 puff INHALATION BID #1 inhaler predniSONE 10 mg PO DAILY #30 tab Tiotropium [place] [Spiriva] 1 cap INHALATION DAILY #1 device Azithromycin [Zithromax] 500 mg PO DAILY #3 tab Continue Multivitamins, Thera [Multivitamin (formulary)] 1 each PO DAILY [place]-3 Fatty Acids/Fish Oil [Fish Oil 1,000 mg Softgel] 1 each PO DAILY Cholecalciferol (Vitamin D3) [Vitamin D3] 2,000 unit PO DAILY Discharge Medication List Multivitamins, Thera [Multivitamin (formulary)] 1 each PO DAILY 02/04/15 [ History] [place]-3 Fatty Acids/Fish Oil [Fish Oil 1,000 mg Softgel] 1 each PO DAILY [History] Cholecalciferol (Vitamin D3) [Vitamin D3] 2,000 unit PO DAILY 09/26/18 [History] Albuterol Inhaler [Ventolin Hfa Inhaler] 1 - 2 puff INHALATION Q6HR PRN #1 inhaler 11/09/18 [Rx] Azithromycin [Zithromax] 500 mg PO DAILY #3 tab 11/09/18 [Rx] Budesonide-Formot 160-4.5 Mcg [Symbicort 160-4.5 Mcg Inhaler] 2 puff INHALATION BID #1 inhaler 11/09/18 [Rx] Tiotropium [place] [Spiriva] 1 cap INHALATION DAILY #1 device 11/09/18 [Rx] predniSONE 10 mg PO DAILY #30 tab 11/09/18 [Rx] Follow up Appointment(s)/Referral(s): Norma Dubois MD [STAFF PHYSICIAN] - 1 Week (Patient to call Dr. Dubois's office to schedule follow up appointment. The office has questions for the patient, since she will be a new patient. ) Alec Gudino MD [STAFF PHYSICIAN] - 11/21/18 10:45 am Patient Instructions/Handouts: Albuterol (By breathing), Prednisone (By mouth) , Azithromycin (By mouth), Tiotropium (By breathing), Budesonide/Formoterol (By breathing), COPD (Chronic Obstructive Pulmonary Disease) (DC), Hypoxia (GEN) Discharge Disposition: HOME SELF-CARE
[2018-11-09] MEDS ORDERED: SYMBICORT 160-4.5 MCG INHALER INHALATION SCH (20:00)
[2018-11-10] MEDS ORDERED: methylPREDNISolone 4 MG TAB TAPER PO SCH (09:00)
== END 2018-11-09 18:30 | disposition home or self-care (01) | DRG 192 ==
LOC: EC 15:04 → 3NMEDONC 18:19
PROVIDERS: ADMIT Hospitalist; ATTEND Hospitalist
DX: J44.0 Chronic obstructive pulmonary disease with (acute) lower respiratory infection (principal); J44.1 Chronic obstructive pulmonary disease with (acute) exacerbation; E78.5 Hyperlipidemia, unspecified; J20.9 Acute bronchitis, unspecified; G43.909 Migraine, unspecified, not intractable, without status migrainosus; R09.02 Hypoxemia; F90.9 Attention-deficit hyperactivity disorder, unspecified type; Z71.6 Tobacco abuse counseling; F17.200 Nicotine dependence, unspecified, uncomplicated; Z79.899 Other long term (current) drug therapy; Z87.01 Personal history of pneumonia (recurrent); Z98.1 Arthrodesis status; Z88.1 Allergy status to other antibiotic agents; Z88.8 Allergy status to other drugs, medicaments and biological substances
CPT/HCPCS: 36415; 71046; 80053; 82550; 82553; 83605; 84484; 85025; 87040; 93005; 94640; 96361; 96365; 96375; 99284

== ENCOUNTER → 2019-03-27 | Outpatient (CLI) | payer MEDICARE, OTHER ==
--- NOTE | 2019-03-27 22:55 | MR ---
EXAMINATION TYPE: MR cspine/lspine wo/w con DATE OF EXAM: 03/27/2019 COMPARISON: Prior cervical and lumbar spine MRI dated 11/11/2010 HISTORY: Pain/weakness in neck and low back extending into extremities TECHNIQUE: Multiplanar, multisequence images of the lumbar and cervical spine is performed without and with IV c ontrast, utilizing 7.5 mL intravenous Gadavist FINDINGS: Cervical spine: Postop changes are noted status post anterior cervical fusion and discectomy at C5-C7 , susceptibility artifact is again seen. There is stable alignment, minimal anterolisthesis grade 1 C 4-5 with associated loss of disc height signal compatible disc desiccation and degenerative disc dise ase, there is associated spondylosis, anterolisthesis grade also present C7-T1. Cervical cord signal is normal. C4-5 level shows posterior extension of a broad-based disc bulge somewhat eccentric towards the left, endplate disc complex causes some anterolateral mass effect on the thecal sac, there is mild central stenosis. Left-sided foraminal encroachment is also present. Right-sided foraminal encroachment is p resent at C5-6, C6-7 as on prior exam. No abnormal enhancement following contrast administration. IMPRESSION: Degenerative disc disease has progressed at C4-5. Postop changes. Lumbar MRI: Patient is status post posterior lumbar fusion L4-5 S1 with associated laminectomies, met allic susceptibility artifact is present. The conus is at T12-L1 shows an unremarkable appearance. Martita mbar vertebral bodies show preserved height and alignment. Axial images show spinal stenosis at L3-4, there is hypertrophic change of the facets with ligamentum flavum causing posterior lateral mass effect on the thecal sac greater on the left, trefoil appearan ce of the thecal sac is present, circumferential extension of endplate disc complex results in bilate ral foraminal encroachment. Loss of disc height signal is present compatible disc desiccation and deg enerative disc disease, there is a posterior broad-based disc bulge present causing anterior mass eff ect on the thecal sac. L2-3 and L1-2 show no significant stenosis or foraminal encroachment. Minimal posterior broad-based d isc bulge present at L2-3 causing only slight anterior mass effect on the thecal sac. L4-5 and L5-S1 show no significant central stenosis or foraminal encroachment, no recurrent disc salena iation. No abnormal enhancement following contrast administration. IMPRESSION: Postop changes. Degenerative disc disease. Spinal stenosis noted L3-4 as described.
== END | disposition home or self-care (01) ==
LOC: RADMRIMAIN 21:20
PROVIDERS: ATTEND Orthopaedic Surgery
DX: M48.061 Spinal stenosis, lumbar region without neurogenic claudication (principal); M51.16 Intervertebral disc disorders with radiculopathy, lumbar region; M50.121 Cervical disc disorder at C4-C5 level with radiculopathy; Z98.890 Other specified postprocedural states
CPT/HCPCS: 72156; 72158; A9585

== ENCOUNTER → 2019-04-14 | Outpatient (CLI) | payer MEDICARE, OTHER ==
--- NOTE | 2019-04-18 09:46 | MM ---
Reason for exam: screening (asymptomatic). Last mammogram was performed 1 year and 9 months ago. History: Patient is postmenopausal. Family history of breast cancer in brother at age 57 and breast cancer in maternal grandmother. Benign excisional biopsy of the left breast. Physical Findings: A clinical breast exam by your physician is recommended on an annual basis and results should be correlated with mammographic findings. MG 3D Screening Mammo W/Cad Bilateral CC and MLO view(s) were taken. Prior study comparison: July 29, 2017, bilateral MG 3d screening mammo w/cad. December 13, 2014, bilateral MG screening mammo w CAD. There are scattered fibroglandular densities. Finding: There is a 7 mm equal density (isodense) mass in the upper outer quadrant of the right breast. ASSESSMENT: Incomplete: need additional imaging evaluation, BI-RAD 0 RECOMMENDATION: Special view mammogram of the right breast. If lesion persists on supplemental views, image directed ultrasound is recommended. [facility] will attempt to contact patient to return for supplemental views and ultrasound if indicated.
== END | disposition home or self-care (01) ==
LOC: RADMAMWWP 11:27
PROVIDERS: ATTEND Family Medicine
DX: Z12.31 Encounter for screening mammogram for malignant neoplasm of breast (principal); Z80.3 Family history of malignant neoplasm of breast
CPT/HCPCS: 77063; 77067

== ENCOUNTER → 2019-04-20 | Outpatient (CLI) | payer MEDICARE, OTHER ==
[2019-04-20 12:26] VITALS: BP 130/92; PULSE 82; RESP 16; TEMP 97.9; BMI 23.3
--- NOTE | 2019-04-20 13:03 | P.GSHP ---
History of Present Illness H&P Date: 04/20/19 Chief Complaint: Abnormal mammogram right breast There is a 59-year-old white female who on a routine screening mammogram was noted to have an area of nodularity in the upper outer quadrant of the right breast. The mammogram was performed 53 119. The patient subsequently had a diagnostic mammogram and an ultrasound of the right breast. The area of nodularity persisted on mammogram but was not seen on ultrasound. She was therefore recommended to undergo a stereotactic core biopsy. The patient herself does not feel anything of concern in either breast. The patient has no history of any pain in either breast. She has no history of any trauma or infection in the breast. No nipple discharge or skin changes of concern. Family History: maternal grandmother: breast maternal aunt: breast cancer brother: bilateral breast cancer paternal grandfather: colon cancer Hormonal history: Menarche:12 , 1, breast fed: yes, first at 20 menopause: 37 BCP: 10 hormones: none Past surgical history: 1. Left breast biopsy 2. Tonsillectomy 3. 2 cervical fusions 4. Lumbar fusion 5. knee arthroscopic 6. bilateral bunionectomy Past Medical History: 1. arthritis 2. Degenerative disc disease 3. Osteopenia 4. COPD/ related to respiratory synsctial virus (RSV) Social History: smoke: stopped in October, 11/16 PPD for 50 years alcohol: none drugs: none - Constitutional Constitutional: Denies chills, Denies fever - EENT Comment: wears glasses, glaucoma Eyes: denies blurred vision, denies pain Ears: bilateral: tinnitus, deny: decreased hearing Ears, nose, mouth and throat: Reports headache, Denies sore throat - Breasts Breasts: bilateral: as per HPI - Cardiovascular Cardiovascular: Reports high blood pressure - Respiratory Comment: COPD, former smoker - Gastrointestinal Gastrointestinal: Denies abdominal pain, Denies diarrhea, Denies nausea, Denies vomiting - Genitourinary (Female) Comment: UTI Genitourinary: Reports kidney stones - Menstruation Menstruation: Reports postmenopausal - Musculoskeletal Comment: Fibromyalgia, osteopenia Musculoskeletal: Reports myalgias - Integumentary Comment: Right hand breaks out under stress, eczema Integumentary: Denies pruritus, Denies rash - Neurological Comment: bilateral hands and legs Neurological: Reports numbness, Reports weakness - Psychiatric Psychiatric: Reports anxiety, Reports depression - Endocrine Endocrine: Reports weight change, Denies fatigue - Hematologic/Lymphatic Comment: none - Allergic/Immunologic Allergic/Immunologic: Reports seasonal allergies Past Medical History Past Medical History: COPD, Hyperlipidemia, Pneumonia Additional Past Medical History / Comment(s): MIGRAINE History of Any Multi-Drug Resistant Organisms: None Reported Past Surgical History: Back Surgery, Orthopedic Surgery Additional Past Surgical History / Comment(s): LUMBAR FUSIONx2 ,cervical funsion x1, BOTH FEET bunion sx, KNEE ARTHROSCOPY Past Anesthesia/Blood Transfusion Reactions: No Reported Reaction Past Psychological History: ADD/ADHD Smoking Status: Former smoker Past Alcohol Use History: None Reported Past Drug Use History: None Reported - Past Family History Daughter(s) Family Medical History: No Reported History Son(s) Family Medical History: No Reported History Medications and Allergies Home Medications Medication Instructions Recorded Confirmed Type Multivitamins, Thera [Multivitamin 1 each PO DAILY 02/04/15 04/20/19 History (formulary)] [place]-3 Fatty Acids/Fish Oil [Fish 1 each PO DAILY 02/04/15 04/20/19 History Oil 1,000 mg Softgel] Cholecalciferol (Vitamin D3) 2,000 unit PO DAILY 09/26/18 04/20/19 History [Vitamin D3] Albuterol Inhaler [Ventolin Hfa 1 - 2 puff INHALATION Q6HR PRN #1 11/09/18 04/20/19 Rx Inhaler] inhaler Budesonide-Formot 160-4.5 Mcg 2 puff INHALATION BID #1 inhaler 11/09/18 04/20/19 Rx [Symbicort 160-4.5 Mcg Inhaler] Cyclobenzaprine HCl 10 mg PO TID 04/20/19 04/20/19 History Hydrocodone/Acetaminophen 1 tab PO Q6HR PRN 04/20/19 04/20/19 History [Hydrocodone-Acetamin 5-300 mg] Allergies Allergy/AdvReac Type Severity Reaction Status Date / Time ciprofloxacin [From Cipro] Allergy Rash/Hives Verified 04/20/19 12:27 ciprofloxacin HCl Allergy Rash/Hives Verified 04/20/19 12:27 [From Cipro] nitrofurantoin AdvReac MUSCLE Verified 04/20/19 12:27 WEAKNESS risedronate sodium AdvReac JAW PAIN Verified 04/20/19 12:27 [From Actonel] rosuvastatin calcium AdvReac LEG CRAMPS Verified 04/20/19 12:27 [From Crestor] Surgical - Exam Vital Signs Temp Pulse Resp BP Pulse Ox 97.9 F 82 16 130/92 96 04/20/19 12:23 04/20/19 12:23 04/20/19 12:23 04/20/19 12:23 04/20/19 12:23 BMI 23.4 - General well developed, well nourished, no distress - Eyes normal ocular movement - ENT normal pinna, no hearing loss - Neck no masses, trachea midline - Respiratory normal respiratory effort, clear to auscultation - Cardiovascular Rhythm: regular Heart Sounds: normal: S1, S2 - Abdomen Abdomen: soft, non tender, no guarding, no rigid, no rebound - Integumentary normal turgor - Neurologic no disoriented, no combative - Musculoskeletal normal gait, normal posture - Psychiatric oriented to time, oriented to person, oriented to place, speech is normal, memory intact Breast examination: Make this: Multiple positional exam no dominant masses or nodules of concern fibrocystic changes Right axilla: No adenopathy of concern Left breast: Multiple positional exam no dominant masses or nodules of concern Left axilla: Shotty adenopathy BRA size: 36B Results Mammogram and ultrasound results reviewed Assessment and Plan Assessment: Impression: 1. Mammographic abnormality right breast 2. Fibrocystic breast changes 3. Family history of cancer 4. Family history of breast cancer 5. Shoddy adenopathy left axilla 6. Cervical disc disease 7. Osteopenia 8. Fibromyalgia Risk and benefits discussed with the patient and she wishe to proceed with stero-biopsy of the right breast. Plan: 1. Stereotactic core biopsy area of concern in the right breast 2. Medical management of medical conditions 2. Patient scheduled for cervical disc surgery in the near future CC: DR. Jesus Manuel Duron ( [id number] [facility], [address], [place], [address])
== END ==
LOC: WWCWWP 11:57
PROVIDERS: ATTEND Surgery
DX: Z53.9 Procedure and treatment not carried out, unspecified reason (principal)

== ENCOUNTER → 2019-04-20 | Outpatient (CLI) | payer MEDICARE, OTHER ==
--- NOTE | 2019-04-20 11:29 | MM ---
Reason for exam: additional evaluation requested from abnormal screening. Last mammogram was performed less than 1 month ago. History: Patient is postmenopausal. Family history of breast cancer in brother at age 57 and breast cancer in maternal grandmother. Benign excisional biopsy of the left breast. Physical Findings: Nurse did not find any significant physical abnormalities on exam. MG 3D Work Up W/Cad RT Spot compression CC, spot compression MLO, and ML view(s) were taken of the right breast. Prior study comparison: April 14, 2019, bilateral MG 3d screening mammo w/cad. July 29, 2017, bilateral MG 3d screening mammo w/cad. Finding: There is an equal density (isodense), indistinct irregular mass in the upper outer quadrant, posterior position of the right breast best seen on MLO persistent on compression. New finding since April 14, 2019 and July 29, 2017. These results were verbally communicated with the patient and result sheet given to the patient on 04/20/19. ASSESSMENT: Incomplete: need additional imaging evaluation, BI-RAD 0 RECOMMENDATION: Ultrasound of the right breast.
--- NOTE | 2019-04-20 11:31 | USB ---
Reason for exam: additional evaluation requested from abnormal screening. History: Patient is postmenopausal. Family history of breast cancer in brother at age 57 and breast cancer in maternal grandmother. Benign excisional biopsy of the left breast. US Breast Workup Limited RT Right limited breast ultrasound including focal area of concern, retroareolar and axilla demonstrates no cystic or solid lesion seen. These results were verbally communicated with the patient and result sheet given to the patient on 04/20/19. ASSESSMENT: Negative, BI-RAD 1 RECOMMENDATION: Stereotactic core biopsy of the right breast. (mammographic upper outer quadrant density) Called with mammographic findings and has scheduled an appointment for the patient for 04/20/19 at 12:[address] Yuan. Biopsy scheduled for 05/23/19 at 8:00. PRELIMINARY REPORT CALLED AND FAXED TO DR. YUAN ON 04/20/19.
== END | disposition home or self-care (01) ==
LOC: RADMAMWWP 08:59
PROVIDERS: ATTEND Family Medicine
DX: R92.8 Other abnormal and inconclusive findings on diagnostic imaging of breast (principal)
CPT/HCPCS: 77065; 76642; G0279; 77061

== ENCOUNTER → 2019-05-23 | Day surgery (SDC) | payer MEDICARE, OTHER ==
[2019-05-23 07:26] VITALS: BP 136/81; PULSE 58; RESP 16; TEMP 97.6; BMI 22.4
--- NOTE | 2019-05-23 08:42 | P.PN ---
Progress Note - Text Progress Note Date: 05/23/19 Attempted stereo biopsy was unsuccessful as we were unable to localize the area of concern in the right breast. Evaluation was done with radiology, Dr. Davis. It was therefore recommended that the patient undergo a repeat ultrasound and mammogram of the right breast with physician exam in 6 months. It was also recommended that the patient be seen for genetic testing secondary to family history with a brother having had breast cancer and bilateral mastectomies. She is going to be scheduled for medical oncology for possible genetic testing. She will follow here in 6 months time or sooner if genetic testing is positive, or if she notes any changes in her breast or has any concerns related to her breast. CC: Dr. Jesus Manuel Craven ([place])
--- NOTE | 2019-05-23 13:08 | MM ---
EXAMINATION TYPE: MG discontinued stereo core RT DATE OF EXAM: 05/23/2019 COMPARISON: Screening mammograms dated back to 12/04/1914. CLINICAL HISTORY: Right upper outer quadrant focal asymmetry for which stereotactic guided biopsy was recommended. TECHNIQUE: Stereotactic guided core biopsy of right breast. FINDINGS: The procedure of stereotactic guided core biopsy was explained to the patient. Benefits, a lternatives, and risks were discussed. An informed consent was then obtained. Preprocedural timeout was performed. Preprocedural images did not definitely identify the upper-outer quadrant focal asymmetry. Additional ly retrospectively this appears similar to prior mammograms dating back to 2014 and resolves on spot compression cc view, improving and appearing as fibroglandular tissue on spot compression MLO. This i s probably benign and six-month follow-up diagnostic right breast mammogram will be performed. This w as discussed with the both the patient and the surgeon. IMPRESSION: Canceled right breast stereotactic guided biopsy as detailed above. 6 month follow-up diagnostic righ t breast mammogram is recommended.
== END ==
LOC: RADMAMWWP 07:00
PROVIDERS: ATTEND Surgery
DX: R92.8 Other abnormal and inconclusive findings on diagnostic imaging of breast (principal); Z80.3 Family history of malignant neoplasm of breast; Z53.8 Procedure and treatment not carried out for other reasons

== ENCOUNTER → 2019-12-05 | Outpatient (CLI) | payer MEDICARE, OTHER ==
--- NOTE | 2019-12-05 08:20 | CT ---
EXAMINATION TYPE: CT lumbar spine wo con DATE OF EXAM: 12/05/2019 7:18 AM COMPARISON: None HISTORY: History of lumbar fusion CT DLP: 892 mGycm Automated exposure control for dose reduction was used. Unenhanced CT of the lumbar spine was performed. Bone and soft tissue window settings are submitted as well as coronal and sagittal reconstructions. There is a 2 mm nonobstructing right renal calculus. L1-L2: Normal disc space height. No disc herniation protrusion or central stenosis. No facet joint arthropathy. No evidence for foraminal encroachment. L2-L3: 1 to 2 mm retrolisthesis of L2 relative to L3 with hypertrophic changes and mild degenerative disc disease. No foraminal encroachment and borderline canal stenosis. Circumferential disc bulging r esults in mild effacement of thecal sac. L3-L4: Degenerative disc disease with facet arthropathy and diffuse disc bulging with ligamentum flav um hypertrophy. Artifact from the surgery results in a limited exam. Suspect canal stenosis and bilat eral foraminal encroachment. L4-L5: Postsurgical changes. Assessment spinal canal nondiagnostic due to artifact. Abnormal attenuat ion posterior to the thecal sac at the laminectomy region likely related to postsurgical scar. L5-S1: Nondiagnostic assessment spinal canal due to artifact. Postsurgical changes noted. Neural fora adalberto grossly appear to be patent. IMPRESSION: 1. Postsurgical changes L4-5 and L5-S1 with nondiagnostic assessment spinal canal due to extreme vivienne fact from the metallic hardware. 2. Disc bulging hypertrophic change and ligamentum flavum facets L3-L4 with suspected significant can al stenosis bilateral foraminal encroachment. Artifact from the adjacent surgical limits assessment. 3. Disc bulging L2-L3 with mild effacement of thecal sac. Neural foramina patent. Borderline canal st enosis. 4. 2 mm nonobstructing right renal calculus.
== END | disposition home or self-care (01) ==
LOC: RADCTMAIN 06:54
PROVIDERS: ATTEND Orthopaedic Surgery
DX: Z09 Encounter for follow-up examination after completed treatment for conditions other than malignant neoplasm (principal); M48.061 Spinal stenosis, lumbar region without neurogenic claudication; M51.86 Other intervertebral disc disorders, lumbar region; Z98.1 Arthrodesis status
CPT/HCPCS: 72131

== ENCOUNTER → 2019-12-28 | Outpatient (CLI) | payer MEDICARE, OTHER ==
--- NOTE | 2019-12-28 14:19 | MM ---
Reason for exam: follow-up at short interval from prior study. Last mammogram was performed 8 months ago. History: Patient is postmenopausal. Family history of breast cancer in brother at age 57 and breast cancer in maternal grandmother. MG discontinued stereo core RT of the right breast, May 23, 2019. Benign excisional biopsy of the left breast. Physical Findings: Nurse did not find any significant physical abnormalities on exam. MG 3D Diag Mammo W/Cad RT CC, MLO, and ML view(s) were taken of the right breast. Prior study comparison: April 20, 2019, right breast MG 3d work up w/cad RT. April 14, 2019, bilateral MG 3d screening mammo w/cad. The breast tissue is heterogeneously dense. This may lower the sensitivity of mammography. Right upper outer quadrant posterior depth focal asymmetry appears stable back to 2016, benign. These results were verbally communicated with the patient and result sheet given to the patient on 12/28/19. ASSESSMENT: Benign, BI-RAD 2 RECOMMENDATION: Return to routine screening mammogram schedule for both breasts. Back on schedule for March 2020.
== END | disposition home or self-care (01) ==
LOC: RADMAMWWP 13:38
PROVIDERS: ATTEND Surgery
DX: R92.8 Other abnormal and inconclusive findings on diagnostic imaging of breast (principal)
CPT/HCPCS: 77065; G0279; 77061

== ENCOUNTER → 2019-12-28 | Outpatient (CLI) | payer MEDICARE, OTHER ==
--- NOTE | 2019-12-28 15:13 | CTL ---
EXAMINATION TYPE: CT Low Dose Lung DATE OF EXAM ORDERED: 12/28/2019 COMPARISON: CT chest 02/11/2011 HISTORY: . Low Dose CT Lung Screening CT DLP: [address] CTDI: 1.49 mGy IV CONTRAST USED: None. SCREENING VISIT: First visit COMPARISON: None. TECHNIQUE: Low dose computed tomography scan was performed through the chest at 1 millimeter thick se ctions and reconstructed images in the coronal plane at [address] DIAGNOSTIC QUALITY: Satisfactory FINDINGS: LUNG NODULES lobulated mass seen on prior study right upper lobe is not currently visible. There is l inear nodular scarring felt to be postoperative in nature within the right upper lobe. I do not see e vidence for distinct pulmonary nodule or mass at this time. Consider contrast enhanced study if felt to be indicated. LUNGS: COPD: Severity: Mild Fibrosis: Severity:None Lymph nodes: None Other findings: None RIGHT PLEURAL SPACE: Effusion: None Calcification: None Thickening: None Pneumothorax: None LEFT PLEURAL SPACE: Effusion: None Calcification: None Thickening: None Pneumothorax: None HEART: Heart Size: Mildly enlarged Coronary calcification: Mild Pericardial effusion: None OTHER FINDINGS: Ascending thoracic aortic aneurysm measuring 4.3 cm AP dimension. Upper abdomen: No significant abnormality Bony thorax: Degenerative changes Supraclavicular region: No significant abnormalityOther: No significant abnormalityI IMPRESSION: lobulated mass seen on prior study right upper lobe is not currently visible. There is linear nodular scarring felt to be postoperative in nature within the right upper lobe. I do not see evidence for d istinct pulmonary nodule or mass at this time. Consider contrast enhanced study if felt to be indicat ed. FOLLOW UP CT CHEST RECOMMENDATION: Follow-up screening in [address] LUNG RAD: LUNG RAD CATEGORY Probably benign Lung RADS 3
== END | disposition home or self-care (01) ==
LOC: RADCTMAIN 14:26
PROVIDERS: ATTEND Internal Medicine Pulmonary Disease
DX: Z12.2 Encounter for screening for malignant neoplasm of respiratory organs (principal); R91.1 Solitary pulmonary nodule; Z87.891 Personal history of nicotine dependence